=== PATIENT | male | born 1965 | race American Indian/Alaskan Native ===

== ENCOUNTER 2017-01-17 15:21 | Inpatient (IN) | payer OTHER ==
--- NOTE | 2017-01-17 15:50 | Emergency Department Report ---
Chief Complaint: Dizziness Stated Complaint: HIGH BLOOD SUGAR Time Seen by Provider: 01/17/17 15:46 - HPI History of Present Illness: PT c/o dizziness x 1 hr. PT states he was at work when his symptoms occurred. - ROS Review of Systems: + increase thirst - dysuria + left sided abd discomfort - Exam Physical Exam: obese male no acute distress no focal weakness gcs 15 MSE screening note: Focused history and physical exam performed. Due to findings the following was ordered: ekg, labs, ct ED Disposition for MSE Condition: Stable
[2017-01-17] MEDS ORDERED: NACL 0.9% 1000 ML 1,000 ML ONE (16:10)
[2017-01-17] MEDS ORDERED: HEPARIN 10,000 UNITS/10 ML ONE (16:11)
[2017-01-17] MEDS ORDERED: BABY ASPIRIN ONE (16:11)
[2017-01-17 16:24] LABS: Basophils % (Auto) 0.5 % (0.0-1.8); Eosinophils % (Auto) 1.3 % (0.0-4.3); Hematocrit 42.8 % (35.5-45.6); Mean Corpuscular HGB Conc 33 % (32-34); Mean Corpuscular Volume 79 fl (84-94); Platelet Count 252 K/mm3 (140-440); Red Blood Count 5.43 M/mm3 (3.65-5.03); Red Cell Distribution Width 15.4 % (13.2-15.2); White Blood Count 8.1 K/mm3 (4.5-11.0)
[2017-01-17] MEDS ORDERED: TRIDIL DRIP 50MG/250ML 50 MG/250 ML BOTTLE IV ONE (16:26)
[2017-01-17] MEDS ORDERED: ASPIRIN PO ONE (16:26)
[2017-01-17] MEDS ORDERED: TRIDIL DRIP 50MG/250ML 50 MG/250 ML BOTTLE ONE (16:26)
[2017-01-17 16:33] LABS: Mean Corpuscular Hemoglobin 26 pg (28-32)
[2017-01-17 16:35] LABS: INR 0.99 (0.87-1.13); Partial Thromboplastin Time 22.5 Sec. (24.2-36.6)
--- NOTE | 2017-01-17 16:46 | XRay Report ---
AP PORTABLE CHEST : 01/17/17 15:45:00 CLINICAL: Hypertension. COMPARISON:None FINDINGS: Normal heart and pulmonary vessels. The lungs are normally expanded and clear. The bones and soft tissues are unremarkable. IMPRESSION: Normal chest.
[2017-01-17 16:49] LABS: Alanine Aminotransferase 9 units/L (7-56); Albumin 4.2 g/dL (3.9-5); Alkaline Phosphatase 83 units/L (35-129); Anion Gap 17 mmol/L; Blood Urea Nitrogen 16 mg/dL (9-20); Calcium 9.6 mg/dL (8.4-10.2); Carbon Dioxide 29 mmol/L (22-30); Chloride 99.1 mmol/L (98-107); Glucose 258 mg/dL (75-100); Lipase 132 units/L (13-60); Potassium 4.4 mmol/L (3.6-5.0); Sodium 141 mmol/L (137-145); Total Protein 8.4 g/dL (6.3-8.2)
--- NOTE | 2017-01-17 17:08 | Emergency Department Report ---
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 He stated that he felt dizzy and very sweaty. He spoke to someone there who advised him that he should have his blood sugar checked which was found to be elevated. Patient began to experience tingling in his left side from his head to his foot. He also had some sort of discomfort in the left upper quadrant of his abdomen and the pericostal area anteriorly. This discomfort did not radiate. He states he did experience some tightness there. He did not refer to it as pain. The patient has a history of diabetes and hypertension. He denies smoking. He denies a family history of significant coronary artery disease to his knowledge. He states he has never had any workup for cardiac problems. When the patient arrived in the emergency department his blood pressure was about 150/100. -: Sudden Location: abdomen, left Quality: other ("tingling") Consistency: constant Improves with: none Worsens with: none Associated Symptoms: diaphoresis Treatments Prior to Arrival: none - Related Data Home Medications Medication Instructions Recorded Confirmed Last Taken metFORMIN [Glucophage] 500 mg PO BID 11/22/14 11/22/14 Unknown Previous Rx's Medication Instructions Recorded Last Taken Type Lisinopril/Hydrochlorothiazide 1 tab PO QDAY #30 tablet 11/22/14 Unknown Rx [Zestoretic 10-12.5 mg] traMADol [Ultram 50 MG tab] 50 mg PO Q6H PRN #10 tablet 11/22/14 Unknown Rx Allergies Allergy/AdvReac Type Severity Reaction Status Date / Time No Known Allergies Allergy Unverified 11/21/14 22:57 ED Review of Systems ROS: Stated complaint: HIGH BLOOD SUGAR Other details as noted in HPI Constitutional: denies: chills, fever Eyes: denies: eye pain, eye discharge, vision change ENT: denies: ear pain, throat pain Respiratory: denies: cough, shortness of breath, wheezing Cardiovascular: chest pain. denies: palpitations Endocrine: no symptoms reported Gastrointestinal: abdominal pain. denies: nausea, diarrhea Genitourinary: denies: urgency, dysuria Musculoskeletal: denies: back pain, joint swelling, arthralgia Skin: denies: rash, lesions Neurological: paresthesias. denies: headache, weakness Psychiatric: denies: anxiety, depression Hematological/Lymphatic: denies: easy bleeding, easy bruising ED Past Medical Hx - Past Medical History Hx Hypertension: Yes Hx Diabetes: Yes - Surgical History Additional Surgical History: testicular surg when teenager - Social History Smoking Status: Never Smoker Substance Use Type: None - Medications Home Medications: Home Medications Medication Instructions Recorded Confirmed Last Taken Type Lisinopril/Hydrochlorothiazide 1 tab PO QDAY #30 tablet 11/22/14 Unknown Rx [Zestoretic 10-12.5 mg] metFORMIN [Glucophage] 500 mg PO BID 11/22/14 11/22/14 Unknown History traMADol [Ultram 50 MG tab] 50 mg PO Q6H PRN #10 tablet 11/22/14 Unknown Rx ED Physical Exam - General Limitations: No Limitations General appearance: alert, in no apparent distress, other (cool and clammy) - Head Head exam: Present: atraumatic, normocephalic - Eye Eye exam: Present: normal appearance - ENT ENT exam: Present: mucous membranes moist - Neck Neck exam: Present: normal inspection. Absent: tenderness, meningismus - Respiratory Respiratory exam: Present: normal lung sounds bilaterally. Absent: respiratory distress - Cardiovascular Cardiovascular Exam: Present: regular rate, normal rhythm. Absent: systolic murmur, diastolic murmur, rubs, gallop - GI/Abdominal GI/Abdominal exam: Present: soft, normal bowel sounds. Absent: distended, tenderness, guarding, rebound, rigid - Rectal Rectal exam: Present: deferred - Extremities Exam Extremities exam: Present: normal inspection - Back Exam Back exam: Present: normal inspection - Neurological Exam Neurological exam: Present: alert, oriented X3, CN II-XII intact. Absent: motor sensory deficit - Psychiatric Psychiatric exam: Present: normal affect, normal mood - Skin Skin exam: Present: warm, dry, intact, normal color. Absent: rash ED Course Vital Signs 01/17/17 15:44 Temperature 98.2 F Pulse Rate 92 H Respiratory 20 Rate Blood Pressure 160/110 O2 Sat by Pulse 98 Oximetry - Reevaluation(s) Reevaluation #1: The initial EKG showed slight ST elevation in the inferior leads. This was of concern is patient was diaphoretic. The EKGs were tech stated to Dr. Lake. He stated that the EKGs were not consistent with STEMI. I as well do not think they meet STEMI criteria. However the finding of slight ST elevation in the inferior leads was certainly of concern. Serial EKGs were obtained and they showed no progression. Right-sided EKG was not diagnostic for right ventricular infarct although there is some slight anterior ST elevation. 01/17/17 17:10 Reevaluation #2: The patient had some higher readings which were not well replicated. He had one reading with a blood pressure of some 210/133 on the left but when that was repeated on the right side he was 170/100. It was then directly repeated on the left side and it was 170/100 as well. This was on a nitroglycerin drip of 15 mics. The patient did not require any additional medications for management of his hypertension. His nitroglycerin drip was continued. Ultimately the patient was seen by Dr. Lake. He stated that he thought the patient's noncompliance with medication and elevated blood pressure may contributed to his presentation. Patient remains on a nitroglycerin drip. Being that his CT of the head is clear I'm going to order heparin. 01/17/17 18:18 ED Medical Decision Making - Lab Data Result diagrams: 01/17/17 16:15 01/17/17 16:15 Laboratory Results - last 24 hr 01/17/17 01/17/17 01/17/17 15:39 16:15 16:15 WBC 8.1 RBC 5.43 H Hgb 14.0 Hct 42.8 MCV 79 L MCH 26 L MCHC 33 RDW 15.4 H Plt Count 252 Lymph % (Auto) 19.8 [place] % (Auto) 8.1 H Eos % (Auto) 1.3 Baso % (Auto) 0.5 Lymph # 1.6 [place] # 0.7 Eos # 0.1 Baso # 0.0 Seg Neutrophils % 70.3 H Seg Neutrophils # 5.7 PT 13.0 INR 0.99 APTT 22.5 L VBG pH Sodium Potassium Chloride Carbon Dioxide Anion Gap BUN Creatinine Estimated GFR BUN/Creatinine Ratio Glucose POC Glucose 257 H Calcium Total Bilirubin AST ALT Alkaline Phosphatase Troponin T Total Protein Albumin Albumin/Globulin Ratio Lipase 01/17/17 01/17/17 16:15 16:15 WBC RBC Hgb Hct MCV MCH MCHC RDW Plt Count Lymph % (Auto) [place] % (Auto) Eos % (Auto) Baso % (Auto) Lymph # [place] # Eos # Baso # Seg Neutrophils % Seg Neutrophils # PT INR APTT VBG pH 7.330 Sodium 141 Potassium 4.4 Chloride 99.1 Carbon Dioxide 29 Anion Gap 17 BUN 16 Creatinine 1.3 Estimated GFR > 60 BUN/Creatinine Ratio 12.30 Glucose 258 H POC Glucose Calcium 9.6 Total Bilirubin 0.60 AST 12 ALT 9 Alkaline Phosphatase 83 Troponin T < 0.010 Total Protein 8.4 H Albumin 4.2 Albumin/Globulin Ratio 1.0 Lipase 132 H Laboratory Results - last 24 hr 01/17/17 01/17/17 01/17/17 15:39 16:15 16:15 WBC 8.1 RBC 5.43 H Hgb 14.0 Hct 42.8 MCV 79 L MCH 26 L MCHC 33 RDW 15.4 H Plt Count 252 Lymph % (Auto) 19.8 [place] % (Auto) 8.1 H Eos % (Auto) 1.3 Baso % (Auto) 0.5 Lymph # 1.6 [place] # 0.7 Eos # 0.1 Baso # 0.0 Seg Neutrophils % 70.3 H Seg Neutrophils # 5.7 PT 13.0 INR 0.99 APTT 22.5 L VBG pH Sodium Potassium Chloride Carbon Dioxide Anion Gap BUN Creatinine Estimated GFR BUN/Creatinine Ratio Glucose POC Glucose 257 H Calcium Total Bilirubin AST ALT Alkaline Phosphatase Troponin T Total Protein Albumin Albumin/Globulin Ratio Lipase 01/17/17 01/17/17 16:15 16:15 WBC RBC Hgb Hct MCV MCH MCHC RDW Plt Count Lymph % (Auto) [place] % (Auto) Eos % (Auto) Baso % (Auto) Lymph # [place] # Eos # Baso # Seg Neutrophils % Seg Neutrophils # PT INR APTT VBG pH 7.330 Sodium 141 Potassium 4.4 Chloride 99.1 Carbon Dioxide 29 Anion Gap 17 BUN 16 Creatinine 1.3 Estimated GFR > 60 BUN/Creatinine Ratio 12.30 Glucose 258 H POC Glucose Calcium 9.6 Total Bilirubin 0.60 AST 12 ALT 9 Alkaline Phosphatase 83 Troponin T < 0.010 Total Protein 8.4 H Albumin 4.2 Albumin/Globulin Ratio 1.0 Lipase 132 H - EKG Data EKG shows normal: sinus rhythm Rate: normal - EKG Data Interpretation: other (there is very slight ST elevation in lead 3 and aVF. Otherwise the EKG is consistent with LVH and associated repolarization abnormality which is somewhat diffuse.) - Radiology Data Radiology results: report reviewed interpreted by me: Chest x-ray showed a normal mediastinum and cardiac silhouette. No infiltrate. Critical Care Time: Yes Critical care time in (mins) excluding proc time.: 60 Critical care attestation.: If time is entered above; I have spent that time in minutes in the direct care of this critically ill patient, excluding procedure time. ED Disposition Clinical Impression: Acute coronary syndrome, Uncontrolled hypertension, Paresthesias Hyperglycemia due to type 2 diabetes mellitus Qualifiers: Diabetes mellitus penitentiary insulin use: without penitentiary use Qualified Code(s ): E11.65 - Type 2 diabetes mellitus with hyperglycemia Disposition: OP ADMIT IP TO THIS HOSP Is pt being admited?: Yes Does the pt Need Aspirin: Yes Condition: Stable Instructions: Hypertension (ED), Diabetes Mellitus Type 2 in Adults (ED) Referrals: PRIMARY CARE, [Primary Care Provider] - 3-5 Days Time of Disposition: 18:25
--- NOTE | 2017-01-17 17:58 | Cat Scan Report ---
FINAL REPORT EXAM: CT HEAD/BRAIN WO CON HISTORY: L sided tingling TECHNIQUE: Standard unenhanced CT of the head at 5.0 millimeter axial increments. PRIORS: None. FINDINGS: The ventricular system is normal in size and configuration. There is no evidence for parenchymal volume loss. There is no evidence for mass lesion, mass effect, midline shift, acute intracranial hemorrhage, or acute ischemia/ infarction. No evidence for acute skull fracture is seen. No abnormality in the overlying scalp soft tissues is seen. Visualized paranasal sinuses demonstrates an air-fluid level in the left sphenoid sinus with minimal mucosal thickening. IMPRESSION: Negative CT of the head. No acute intracranial process noted. Mild acute on chronic left sphenoid sinusitis
[2017-01-17] MEDS ORDERED: HEPARIN 10,000 UNITS/10 ML IV ONE (18:20)
[2017-01-17] MEDS: HEPARIN/ 0.45% NACL-25,000 UNIT/500 ML 25,000 UNIT/500 ML BAG IV SCH (19:04)
[2017-01-17 19:36] LABS: Bilirubin,Urine NEG (Negative); Blood,Urine NEG (Negative); Ketones,Urine NEG (Negative); Leukocyte Esterase,Urine NEG (Negative); Mucus,Urine 2+ /HPF; Nitrite,Urine NEG (Negative)
--- NOTE | 2017-01-17 20:41 | Consultation ---
History of Present Illness Consult date: 01/17/17 Consult reason: hypertension, other (abnormal ECG) History of present illness: The patient's a 51-year-old man with a history of chronic hypertension and diabetes. He is noncompliant with his medications, and has not taken his lisinopril in over a year. He also admits to not having seen his doctor's in over a year. He presents to the hospital with a near syncopal episode, associated with severe hypertension. 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 In the emergency room, systolic blood pressure was 217 and diastolic 133. There was no palpitations, no chest pain and no unusual shortness of breath. There is no lower extremity edema. ECG in the emergency room was sinus rhythm with left ventricular hypertrophy and ST and T-wave abnormalities which represent repolarization abnormalities of LVH. No acute ischemia or infarction on the EKG. Cardiac consultation was requested. Past History Past Medical History: diabetes, hypertension Medications and Allergies Allergies Allergy/AdvReac Type Severity Reaction Status Date / Time No Known Allergies Allergy Unverified 11/21/14 22:57 Home Medications Medication Instructions Recorded Confirmed Last Taken Type Lisinopril/Hydrochlorothiazide 1 tab PO QDAY #30 tablet 11/22/14 Unknown Rx [Zestoretic 10-12.5 mg] metFORMIN [Glucophage] 500 mg PO BID 11/22/14 11/22/14 Unknown History traMADol [Ultram 50 MG tab] 50 mg PO Q6H PRN #10 tablet 11/22/14 Unknown Rx Active Meds: Active Medications Nitroglycerin/Dextrose (Tridil Drip 50mg/250ml) 50 mg in 250 mls @ 3 mls/hr IV TITR ONE; 10 MCG/MIN PRN Reason: Protocol Stop: 01/21/17 03:45 Last Titration: 01/17/17 19:30 Dose: 30 mcg/min, 9 mls/hr Heparin Sodium/Sodium Chloride (Heparin/ 0.45% Nacl-25,000 Unit/500 Ml) 25,000 unit in 500 mls @ 20 mls/hr IV TITRATE SAW; 1,000 UNITS/HR PRN Reason: Protocol Last Admin: 01/17/17 19:04 Dose: 1,000 units/hr, 20 mls/hr Review of Systems Cardiovascular: syncope, lightheadedness, no chest pain, no orthopnea, no palpitations, no rapid/irregular heart beat, no edema, no shortness of breath Physical Examination Vital Signs Temp Pulse Resp BP Pulse Ox 98.2 F 92 H 20 160/110 98 01/17/17 15:44 01/17/17 15:44 01/17/17 15:44 01/17/17 15:44 01/17/17 15:44 General appearance: no acute distress HEENT: Positive: PERRL Neck: Positive: neck supple Cardiac: Positive: Reg Rate and Rhythm Lungs: Positive: Decreased Breath Sounds Neuro: Positive: Grossly Intact Abdomen: Positive: Soft Male genitourinary: Positive: deferred Skin: Positive: Clear Extremities: Absent: edema Results 01/17/17 16:15 01/17/17 16:15 Cardiac Enzymes 01/17/17 Range/Units 16:15 AST 12 (5-40) units/L Coagulation 01/17/17 Range/Units 16:15 PT 13.0 (12.2-14.9) Sec. INR 0.99 (0.87-1.13) APTT 22.5 L (24.2-36.6) Sec. CBC 01/17/17 Range/Units 16:15 WBC 8.1 (4.5-11.0) K/mm3 RBC 5.43 H (3.65-5.03) M/mm3 Hgb 14.0 (11.8-15.2) gm/dl Hct 42.8 (35.5-45.6) % Plt Count 252 (140-440) K/mm3 Lymph # 1.6 (1.2-5.4) K/mm3 [place] # 0.7 (0.0-0.8) K/mm3 Eos # 0.1 (0.0-0.4) K/mm3 Baso # 0.0 (0.0-0.1) K/mm3 Comprehensive Metabolic Panel 01/17/17 Range/Units 16:15 Sodium 141 (137-145) mmol/L Potassium 4.4 (3.6-5.0) mmol/L Chloride 99.1 (98-107) mmol/L Carbon Dioxide 29 (22-30) mmol/L BUN 16 (9-20) mg/dL Creatinine 1.3 (0.8-1.5) mg/dL Glucose 258 H (75-100) mg/dL Calcium 9.6 (8.4-10.2) mg/dL AST 12 (5-40) units/L ALT 9 (7-56) units/L Alkaline Phosphatase 83 (35-129) units/L Total Protein 8.4 H (6.3-8.2) g/dL Albumin 4.2 (3.9-5) g/dL EKG interpretations - Telemetry EKG Rhythm: Sinus Rhythm Assessment and Plan - Patient Problems (1) Uncontrolled hypertension Current Visit: Yes Status: Acute Plan to address problem: The patient's primary symptoms of dizziness and headache, associated with uncontrolled hypertension from being noncompliant with his antihypertensives for over a year. Recommend aggressive control and management of blood pressure, salt restricted diet, and patient counseling. (2) Abnormal ECG Current Visit: Yes Status: Acute Plan to address problem: ECG abnormalities are consistent with left ventricle hypertrophy associated with his chronic hypertension. We will recommend further evaluation with an echocardiogram, and predischarge Persantine thallium stress test.
[2017-01-17] MEDS ORDERED: ZOFRAN IV PRN (20:43)
[2017-01-17] MEDS ORDERED: MILK OF MAGNESIA PO PRN (20:43)
[2017-01-17] MEDS ORDERED: TYLENOL PO PRN (20:43)
[2017-01-17] MEDS ORDERED: ULTRAM PO PRN (20:43)
[2017-01-17] MEDS ORDERED: DULCOLAX PR PRN (20:43)
[2017-01-17] MEDS ORDERED: PERCOCET 5/325 PO PRN (20:43)
--- NOTE | 2017-01-17 20:43 | History and Physical Report ---
History of Present Illness Date of examination: 01/17/17 Date of admission: 01/17/17 Chief complaint: L side Numbness sudden onset. History of present illness: - History of Present Illness Initial comments: Patient states that he was working on the [employer] machine in the [facility] [employer] area when he began to experience dizzinrss and severe diaphoresis. He spoke to someone there who advised him that he should have his blood sugar checked which was found to be elevated. Patient began to experience tingling in his left side from his head to his foot. He also had some sort of discomfort in the left upper quadrant of his abdomen and the pericostal area anteriorly. This discomfort did not radiate. He states he did experience some tightness there. He did not refer to it as pain. The patient has a history of diabetes and hypertension.Not taking his meds for few months.BP was very high subsequently in the ER. He denies smoking. He denies a family history of significant coronary artery disease to his knowledge. He states he has never had any workup for cardiac problems. When the patient arrived in the emergency department his blood pressure was about 150/100. -: Sudden Location: abdomen, left Quality: other ("tingling") Consistency: constant Improves with: none Worsens with: none Associated Symptoms: diaphoresis Treatments Prior to Arrival: none - Related Data Home Medications Medication Instructions Recorded Confirmed Last Taken metFORMIN [Glucophage] 500 mg PO BID 11/22/14 11/22/14 Unknown Previous Rx's Medication Instructions Recorded Last Taken Type Lisinopril/Hydrochlorothiazide 1 tab PO QDAY #30 tablet 11/22/14 Unknown Rx [Zestoretic 10-12.5 mg] traMADol [Ultram 50 MG tab] 50 mg PO Q6H PRN #10 tablet 11/22/14 Unknown Rx Allergies Allergy/AdvReac Type Severity Reaction Status Date / Time No Known Allergies Allergy Unverified 11/21/14 22:57 ED Review of Systems ROS: Stated complaint: HIGH BLOOD SUGAR Other details as noted in HPI Constitutional: denies: chills, fever Eyes: denies: eye pain, eye discharge, vision change ENT: denies: ear pain, throat pain Respiratory: denies: cough, shortness of breath, wheezing Cardiovascular: chest pain. denies: palpitations Endocrine: no symptoms reported Gastrointestinal: abdominal pain. denies: nausea, diarrhea Genitourinary: denies: urgency, dysuria Musculoskeletal: denies: back pain, joint swelling, arthralgia Skin: denies: rash, lesions Neurological: paresthesias. denies: headache, weakness Psychiatric: denies: anxiety, depression Hematological/Lymphatic: denies: easy bleeding, easy bruising ED Past Medical Hx - Past Medical History Hx Hypertension: Yes Hx Diabetes: Yes - Surgical History Additional Surgical History: testicular surg when teenager - Social History Smoking Status: Never Smoker Substance Use Type: None - Medications Home Medications: Home Medications Medication Instructions Recorded Confirmed Last Taken Type Lisinopril/Hydrochlorothiazide 1 tab PO QDAY #30 tablet 11/22/14 Unknown Rx [Zestoretic 10-12.5 mg] metFORMIN [Glucophage] 500 mg PO BID 11/22/14 11/22/14 Unknown History traMADol [Ultram 50 MG tab] 50 mg PO Q6H PRN #10 tablet 11/22/14 Unknown Rx Medications and Allergies Allergies Allergy/AdvReac Type Severity Reaction Status Date / Time No Known Allergies Allergy Unverified 11/21/14 22:57 Home Medications Medication Instructions Recorded Confirmed Last Taken Type No Known Home Medications [No 01/17/17 01/17/17 Unknown History Reported Home Medications] Active Meds: Active Medications Nitroglycerin/Dextrose (Tridil Drip 50mg/250ml) 50 mg in 250 mls @ 3 mls/hr IV TITR ONE; 10 MCG/MIN PRN Reason: Protocol Stop: 01/21/17 03:45 Last Titration: 01/17/17 19:30 Dose: 30 mcg/min, 9 mls/hr Heparin Sodium/Sodium Chloride (Heparin/ 0.45% Nacl-25,000 Unit/500 Ml) 25,000 unit in 500 mls @ 20 mls/hr IV TITRATE SAW; 1,000 UNITS/HR PRN Reason: Protocol Last Admin: 01/17/17 19:04 Dose: 1,000 units/hr, 20 mls/hr Exam - Physical Exam Narrative exam: Lying comfortably - Constitutional Vitals: Temp Pulse Resp BP Pulse Ox 98.2 F 87 14 170/119 98 01/17/17 15:44 01/17/17 19:45 01/17/17 19:45 01/17/17 19:45 01/17/17 19:45 General appearance: Present: no acute distress, well-nourished - EENT Eyes: Present: PERRL ENT: hearing intact, clear oral mucosa - Neck Neck: Present: supple, normal ROM - Respiratory Respiratory effort: normal Respiratory: bilateral: CTA - Cardiovascular Heart rate: 80 Heart Sounds: Present: S1 & S2. Absent: rub, click - Extremities Extremities: no ischemia, pulses intact, pulses symmetrical, No edema Peripheral Pulses: within normal limits - Abdominal General gastrointestinal: Present: soft, non-tender, non-distended, normal bowel sounds Male genitourinary: Present: normal - Rectal Rectal Exam: deferred - Integumentary Integumentary: Present: clear, warm, dry - Musculoskeletal Musculoskeletal: gait normal, strength equal bilaterally - Psychiatric Psychiatric: appropriate mood/affect, intact judgment & insight, memory intact, cooperative - Neurologic Neurologic: CNII-XII intact, moves all extremities, gait normal, other (No sensory loss) - Allied Health Allied health notes reviewed: nursing, case management Results - Labs CBC & Chem 7: 01/18/17 05:29 01/18/17 05:29 Labs: Laboratory Last Values WBC 8.1 K/mm3 (4.5-11.0) 01/17/17 16:15 RBC 5.43 M/mm3 (3.65-5.03) H 01/17/17 16:15 Hgb 14.0 gm/dl (11.8-15.2) 01/17/17 16:15 Hct 42.8 % (35.5-45.6) 01/17/17 16:15 MCV 79 fl (84-94) L 01/17/17 16:15 MCH 26 pg (28-32) L 01/17/17 16:15 MCHC 33 % (32-34) 01/17/17 16:15 RDW 15.4 % (13.2-15.2) H 01/17/17 16:15 Plt Count 252 K/mm3 (140-440) 01/17/17 16:15 Lymph % (Auto) 19.8 % (13.4-35.0) 01/17/17 16:15 [place] % (Auto) 8.1 % (0.0-7.3) H 01/17/17 16:15 Eos % (Auto) 1.3 % (0.0-4.3) 01/17/17 16:15 Baso % (Auto) 0.5 % (0.0-1.8) 01/17/17 16:15 Lymph # 1.6 K/mm3 (1.2-5.4) 01/17/17 16:15 [place] # 0.7 K/mm3 (0.0-0.8) 01/17/17 16:15 Eos # 0.1 K/mm3 (0.0-0.4) 01/17/17 16:15 Baso # 0.0 K/mm3 (0.0-0.1) 01/17/17 16:15 Seg Neutrophils % 70.3 % (40.0-70.0) H 01/17/17 16:15 Seg Neutrophils # 5.7 K/mm3 (1.8-7.7) 01/17/17 16:15 PT 13.0 Sec. (12.2-14.9) 01/17/17 16:15 INR 0.99 (0.87-1.13) 01/17/17 16:15 APTT 22.5 Sec. (24.2-36.6) L 01/17/17 16:15 VBG pH 7.330 (7.320-7.420) 01/17/17 16:15 Sodium 141 mmol/L (137-145) 01/17/17 16:15 Potassium 4.4 mmol/L (3.6-5.0) 01/17/17 16:15 Chloride 99.1 mmol/L (98-107) 01/17/17 16:15 Carbon Dioxide 29 mmol/L (22-30) 01/17/17 16:15 Anion Gap 17 mmol/L 01/17/17 16:15 BUN 16 mg/dL (9-20) 01/17/17 16:15 Creatinine 1.3 mg/dL (0.8-1.5) 01/17/17 16:15 Estimated GFR > 60 ml/min 01/17/17 16:15 BUN/Creatinine Ratio 12.30 % 01/17/17 16:15 Glucose 258 mg/dL (75-100) H 01/17/17 16:15 POC Glucose 257 (70-105) H 01/17/17 15:39 Calcium 9.6 mg/dL (8.4-10.2) 01/17/17 16:15 Total Bilirubin 0.60 mg/dL (0.1-1.2) 01/17/17 16:15 AST 12 units/L (5-40) 01/17/17 16:15 ALT 9 units/L (7-56) 01/17/17 16:15 Alkaline Phosphatase 83 units/L (35-129) 01/17/17 16:15 Troponin T < 0.010 ng/mL (0.00-0.029) 01/17/17 16:15 Total Protein 8.4 g/dL (6.3-8.2) H 01/17/17 16:15 Albumin 4.2 g/dL (3.9-5) 01/17/17 16:15 Albumin/Globulin Ratio 1.0 % 01/17/17 16:15 Lipase 132 units/L (13-60) H 01/17/17 16:15 Urine Color Yellow (Yellow) 01/17/17 18:50 Urine Turbidity Clear (Clear) 01/17/17 18:50 Urine pH 5.0 (5.0-7.0) 01/17/17 18:50 Ur Specific [place] 1.021 (1.003-1.030) 01/17/17 18:50 Urine Protein 100 mg/dl mg/dL (Negative) 01/17/17 18:50 Urine Glucose (UA) 150 mg/dL (Negative) 01/17/17 18:50 Urine Ketones Neg mg/dL (Negative) 01/17/17 18:50 Urine Blood Neg (Negative) 01/17/17 18:50 Urine Nitrite Neg (Negative) 01/17/17 18:50 Urine Bilirubin Neg (Negative) 01/17/17 18:50 Urine Urobilinogen 2.0 mg/dL (<2.0) 01/17/17 18:50 Ur Leukocyte Esterase Neg (Negative) 01/17/17 18:50 Urine WBC (Auto) 6.0 /HPF (0.0-6.0) 01/17/17 18:50 Urine RBC (Auto) 4.0 /HPF (0.0-6.0) 01/17/17 18:50 U Epithel Cells (Auto) < 1.0 /HPF (0-13.0) 01/17/17 18:50 Urine Mucus 2+ /HPF 01/17/17 18:50 Short CBC 01/17/17 01/18/17 Range/Units 16:15 05:29 WBC 8.1 7.8 (4.5-11.0) K/mm3 Hgb 14.0 12.0 (11.8-15.2) gm/dl Hct 42.8 36.5 D (35.5-45.6) % Plt Count 252 230 (140-440) K/mm3 BMP 01/17/17 01/18/17 16:15 05:29 Sodium 141 138 Potassium 4.4 4.0 Chloride 99.1 100.8 Carbon Dioxide 29 24 BUN 16 15 Creatinine 1.3 0.8 Glucose 258 H 300 H Calcium 9.6 8.6 Cardiac Enzymes 01/17/17 01/17/17 01/17/17 Range/Units 16:15 20:52 23:40 Total Creatine Kinase 73 72 (55-170) units/L CK-MB (CK-2) 1.1 1.1 (0.0-4.0) ng/mL Troponin T < 0.010 < 0.010 < 0.010 (0.00-0.029) ng/mL 01/18/17 Range/Units 05:29 Total Creatine Kinase 65 (55-170) units/L CK-MB (CK-2) < 1.0 (0.0-4.0) ng/mL Troponin T < 0.010 (0.00-0.029) ng/mL Liver Function 01/17/17 01/18/17 Range/Units 16:15 05:29 Total Bilirubin 0.60 0.30 (0.1-1.2) mg/dL AST 12 9 (5-40) units/L ALT 9 8 (7-56) units/L Alkaline Phosphatase 83 70 (35-129) units/L Albumin 4.2 3.3 L (3.9-5) g/dL Urine 01/17/17 Range/Units 18:50 Urine Color Yellow (Yellow) Urine pH 5.0 (5.0-7.0) Ur Specific [place] 1.021 (1.003-1.030) Urine Protein 100 mg/dl (Negative) mg/dL Urine Glucose (UA) 150 (Negative) mg/dL - Imaging and Cardiology EKG: report reviewed (LVH with repolarization abnormalities ) Chest x-ray: report reviewed (NAF) Assessment and Plan Advance Directives: Yes (Full code) VTE prophylaxis?: Chemical Plan of care discussed with patient/family: Yes - Patient Problems (1) Hypertensive emergency without congestive heart failure Current Visit: Yes Status: Acute Plan to address problem: Initiated Lisinopril /Hctz -his home medication and added Valsartan 169 mg po q12h and coreg 12.5 q12h.Hydralazine 10mg iv PRN. Patient to be counselled about compliance. (2) Acute coronary syndrome Current Visit: Yes Status: Acute Plan to address problem: Patient staated on IV Heparin.Lexiscan and serial cardiac enzymes ordered (3) Uncontrolled diabetes mellitus Current Visit: Yes Status: Chronic Qualifiers: Diabetes mellitus type: type 2 Diabetes mellitus complication status: without complication Diabetes mellitus complication detail: D Diabetic retinopathy severity: D Proliferative retinopathy type: P Diabetes mellitus macular edema: D Diabetes mellitus assisted insulin use: without long term care pharmacist use Laterality: L Chronic kidney disease stage: C Qualified Code(s): E11.65 - Type 2 diabetes mellitus with hyperglycemia Plan to address problem: Patient in denial and not taking his Metformin which is not enough to treat his T2DM.He needs to be on Basal bolus regimen .His A1c is around 12. (4) TIA (transient ischemic attack) Current Visit: Yes Status: Acute Qualifiers: Transient cerebral ischemia type: unspecified Qualified Code(s): G45.9 - Transient cerebral ischemic attack, unspecified Plan to address problem: Patient has L sided Numbness.And persistent.Will treat it as TIA.Get MRI MRA CDS and Echo.Neuro consult requested. (5) DVT prophylaxis Current Visit: Yes Status: Acute (6) DVT prophylaxis Current Visit: Yes Status: Acute Plan to address problem: On Heparin drip
[2017-01-17] MEDS ORDERED: SODIUM CHLORIDE FLUSH SYRINGE 10 ML IV PRN (20:45)
[2017-01-17] MEDS ORDERED: NON-FORMULARY (Lisinopril/Hydrochlorothiazide [Zestoretic 10-12.5 Mg] 1 TAB) PO SCH (20:45)
[2017-01-17 21:28] LABS: Creatine Kinase MB 1.1 ng/mL (0.0-4.0)
[2017-01-17 21:29] LABS: Creatine Kinase 73 units/L (55-170)
[2017-01-17] MEDS ORDERED: HCTZ PO SCH (22:00)
[2017-01-17] MEDS: GLUCOPHAGE PO SCH ×2 (22:12→22:31)
[2017-01-17] MEDS: ZESTRIL PO SCH (22:30)
[2017-01-17] MEDS: DIOVAN PO SCH (22:30)
[2017-01-18 00:11] LABS: Creatine Kinase MB 1.1 ng/mL (0.0-4.0)
[2017-01-18 00:12] LABS: Creatine Kinase 72 units/L (55-170)
[2017-01-18] MEDS ORDERED: ZESTRIL ONE (00:42)
[2017-01-18] MEDS: ZESTRIL PO SCH (01:05)
[2017-01-18] MEDS: HEPARIN/ 0.45% NACL-25,000 UNIT/500 ML 25,000 UNIT/500 ML BAG IV SCH (03:41)
[2017-01-18] MEDS: CATAPRES PO SCH ×3 (03:48→22:27)
[2017-01-18] MEDS ORDERED: TRIDIL DRIP 50MG/250ML 50 MG/250 ML BOTTLE IV SCH (04:00)
[2017-01-18 05:54] LABS: Basophils % (Auto) 0.6 % (0.0-1.8); Eosinophils % (Auto) 1.6 % (0.0-4.3); Hematocrit 36.5 % (35.5-45.6); Mean Corpuscular HGB Conc 33 % (32-34); Mean Corpuscular Volume 79 fl (84-94); Platelet Count 230 K/mm3 (140-440); Red Blood Count 4.66 M/mm3 (3.65-5.03); Red Cell Distribution Width 15.3 % (13.2-15.2); White Blood Count 7.8 K/mm3 (4.5-11.0)
[2017-01-18 06:04] LABS: Mean Corpuscular Hemoglobin 26 pg (28-32)
[2017-01-18 06:19] LABS: Creatine Kinase MB < 1.0 ng/mL (0.0-4.0)
[2017-01-18 06:20] LABS: Alanine Aminotransferase 8 units/L (7-56); Albumin 3.3 g/dL (3.9-5); Albumin/Globulin Ratio 0.9 %; Alkaline Phosphatase 70 units/L (35-129); Anion Gap 17 mmol/L; BUN/Creatinine Ratio 18.75; Blood Urea Nitrogen 15 mg/dL (9-20); Calcium 8.6 mg/dL (8.4-10.2); Carbon Dioxide 24 mmol/L (22-30); Chloride 100.8 mmol/L (98-107); Glucose 300 mg/dL (75-100); Sodium 138 mmol/L (137-145); Total Protein 6.8 g/dL (6.3-8.2)
[2017-01-18 06:23] LABS: Creatine Kinase 65 units/L (55-170)
[2017-01-18] MEDS ORDERED: SODIUM CHLORIDE FLUSH SYRINGE 10 ML IV PRN (06:48)
[2017-01-18] MEDS: NOVOLOG SUB-Q SCH ×8 (08:00→22:24)
[2017-01-18] MEDS: GLUCOPHAGE PO SCH ×2 (08:00→17:42)
--- NOTE | 2017-01-18 09:32 | Admit Criteria Form ---
Admission Criteria Documentation: CARDIOLOGY GRG Clinical Indications for Admission to Inpatient Care ( Place 'X' for any and all applicable criteria): Hospital admission is needed for appropriate care of the patient because of ANY ONE of the following (1): [ ] I. Hemodynamic instability as indicated by ALL of the following (1)(2)(3) (4)(5) [ ]a) Vital signs or other findings not as expected for chronic patient condition or baseline [ ]b) Instability indicated by ANY ONE of the following: [ ]i) Hypotension [ ]ii) Symptomatic Tachycardia unresponsive to treatment ( e.g., analgesia, fluids, sedation as indicated) [ ]iii) Inadequate perfusion indicated by ANY ONE of the following: [ ] 1) Lactic acidosis (> 2 mmol/L) [ ] 2) New abnormal capillary refill (> 3 seconds) [ ] 3) Reduced urine output [ ] 4) New altered mental status [ ]iv) Orthostatic vital sign changes unresponsive to treatment (e.g., fluids) [ ]v) IV inotropic or vasopressor medication required to maintain adequate blood pressure or perfusion [ ] II. Severe heart failure as indicated by ANY ONE of the following(17)(18) [ ]a) Respiratory distress [ ]b) Hypotension [ ]c) Anasarca (refractory to outpatient therapy) [ ]d) Cardiac arrhythmias of immediate concern [ ]e) Myocardial ischemia [ ] III. Cardiac arrhythmias or findings of immediate concern indicated by ANY ONE of the following (19)(20): [ ] a) Heart rhythms that are inherently dangerous or unstable indicated by ANY ONE of the following (21)(22)(23): [ ] i) Resuscitated ventricular fibrillation or cardiac arrest [ ] ii) Ventricular escape rhythm [ ] iii) Sustained ventricular tachycardia (30 seconds or more of ventricular rhythm at greater than 100 beats per minute) [ ] iv) Nonsustained ventricular tachycardia and ANY ONE of the following: [ ] 1) Suspected cardiac ischemia as cause or consequence of ventricular tachycardia [ ] 2) In setting of acute myocarditis [ ] b) Unstable cardiac conduction defects indicated by ANY ONE of the following(23)(24)(25) [ ] i) Type II second-degree atrioventricular block [ ]ii) Third-degree atrioventricular block [ ]iii) New-onset left bundle branch block with suspected myocardial ischemia [ ]c) Any heart rhythm and ANY ONE of the following (21)(22)(26)(27) (28) [ ] i) Continuous long-term ECG monitoring needed (e.g., initiation of drug requiring monitoring for more than 24 hours) [ ] ii) Patient has automatic implanted cardioverter defibrillator that is repeatedly firing, malfunctioning, or in need of immediate adjustment of settings beyond the scope of ambulatory or observation care [ ]d) Heart rhythms of concern due to ANY ONE of the following: [ ] i) Hypotension [ ] ii) Respiratory distress [ ] iii) Association with other significant symptoms (e.g., bradycardia with syncope or ongoing dizziness, supraventricular tachycardia with chest pain (14)(15)(17) [ ] IV. Monitoring for cardiac contusion beyond the scope of observation care needed [A](30)(31)(32) [ ] V. Surgical or device complication (e.g., valve replacement complication , pacemaker dysfunction) (35)(41)(44)(45)(46) [ ] . Inpatient palliative care needed. [B](49) Also use Inpatient Palliative Care Criteria [ ] VII. Nonbacterial thrombotic (marantic) endocarditis (36)(43)(47)(48) [ ] VIII. Cardiology condition, symptom, or finding for which emergency and observation care has failed or are not considered appropriate. [ ] IX. Acute valvular disease requiring inpatient as indicated by ANY ONE of the following (41) [ ]a) Acute valvular regurgitation (42) [ ]b) Noninfectious valvulitis (43) [ ]c) Obstructive valve thrombosis [ ]d) Paravalvular leak [ ]e) Other significant valvular disorder remaining after emergency or observation level of care (as appropriate) [ ]X. Pericardial disease requiring inpatient treatment as indicated by ANY ONE of the following (33)(34)(35)(36)(37) [ ]a) Suspected tamponade (38)(39)(40) [ ]b) Hemopericardium [ ]c) Other significant pericardial disorder remaining after emergency or observation level of care (as appropriate) [ ] XI. Cardiac ischemia beyond scope of emergency and observation care. [X] XII. Hypertension requiring inpatient treatment as indicated by ANY ONE of the following (6)(7)(8) [ ]a) SBP greater than 220 mm Hg or DBP greater than 120 mmHg despite treatment [X]b) SBP greater than 140 mm Hg or DBP greater than 100 mm Hg with evidence of acute end organ damage as indicated by ANY ONE of the following [ ] i) Altered mental status [ ] ii) Acute renal failure as indicated by new onset of ANY ONE of the following (9)(10)(11)(12)(13) [ ]1) 3-fold rise in serum creatinine from baseline [ ]2) Serum creatinine greater than 4 mg/dL ( 354 micromoles/L) with acute rise greater than 0.5 mg/dL (44.2 micromoles/L) [ ]3) Reduction of more than 75% in estimated glomerular filtration rate from baseline [ ]4) Estimated glomerular filtration rate less than 35 mL/min/1.73m2 (0.59 mL/sec/1.73m2) in child up to 18 years of age [ ]5) Cessation of urine output indicated by ALL of the following [ ]A. Adequate volume status [ ]B. Inadequate urine output as indicated by ANY ONE of the following [ ]a. Urine output less than 0.3 mL/kg/hr for 24 hours [ ]b. Anuria (urine output less than 0.1 mL/kg/hr) for 12 hours [ ] iii) Aortic dissection [X] iv) Myocardial Ischemia [ ] v) Left ventricular heart failure [ ]vi) Retinal Hemorrhage [ ]vii) Other significant finding [ ]c) Hypertension in child requiring inpatient treatment as indicated by ALL of the following(14)(15)(16) [ ] i) Outpatient treatment not effective, not available, or not appropriate [ ]ii) SBP or DBP greater than 95th percentile for age [ ]iii) Evidence of acute end organ damage as indicated by ANY ONE of the following [ ]1) Altered mental status [ ]2) Acute renal failure as indicated by new onset of ANY ONE of the following(9)(10)(11)(12)(13) [ ]A. 3-fold rise in serum creatinine from baseline [ ]B. Serum creatinine greater than 4 mg/dL (354 micromoles/L) with acute rise greater than 0.5 mg/dL (44.2 micromoles/L) [ ]C. Reduction of more than 75% in estimated glomerular filtration rate from baseline [ ]D. Estimated glomerular filtration rate less than 35 mL/min/1.73m2 (0.59 mL/sec/1.73m2) in child up to 18 years of age [ ]E. Cessation of urine output indicated by ALL of the following [ ]a. Adequate volume status [ ]b. Inadequate urine output as indicated by ANY ONE of the following [ ]i) Urine output less than 0.3 mL/kg/hr for 24 hours [ ]ii) Anuria ( urine output less than 0.1 mL/kg/hr) for 12 hours [ ]3) Severe headache [ ]4) Visual disturbance [ ]5) Retinal hemorrhage [ ]6) Other significant finding [ ]XIII. Complications of transplanted heart indicated by ANY ONE of the following(61): [ ]a) Acute graft rejection requiring inpatient management (eg, intravenous immunosuppression)(62)(63) [ ]b) Acute graft heart failure indicated by ANY ONE of the following(64): [ ]i) Hemodynamic instability [ ]ii) Cardiac arrhythmias of immediate concern [ ]iii) Pulmonary edema that is very severe (eg, mechanical ventilation needed, imminent or likely, need for 100% oxygen to keep oxygen saturation above 90%) [ ]iv) Pulmonary edema that is persistent as indicated by ALL of the following: [ ]1) New need for oxygen therapy to keep oxygen saturation above 90% (or increased FiO2 need from baseline) [ ]2) Has not improved sufficiently with emergency department or observation care IV diuretics or other heart failure treatments[E] [ ]v) Altered mental status that is severe or persistent [ ]vi) Increased creatinine (new on laboratory test) with reduction of more than 50% in estimated glomerular filtration rate from baseline [ ]vii) Progressively (ongoing) rising creatinine (known from past laboratory test) with reduction of more than 25% in estimated glomerular filtration rate from baseline [ ]viii) Acute renal failure [ ]ix) Acute peripheral ischemia (eg, examination shows pulseless, cool, mottled, or cyanotic extremity) [ ]x) Pulmonary artery catheter monitoring needed [ ]xi) Other sign or symptom of heart failure requiring inpatient treatment (ie, too severe or not responsive to outpatient and observation care treatment) [ ]c) Infection requiring inpatient management (eg, Hemodynamic instability, need for intravenous antimicrobial treatment)(66)(67)(68)(69)(70) [ ]d) Cardiac allograft vasculopathy requiring inpatient management ( eg evidence of cardiac ischemia)(71) [ ]e) Other complication of transplanted heart (eg, stroke, severe pulmonary hypertension, severe valvular dysfunction) requiring inpatient management(72) The original [facility] [employer] content created by [facility] [employer] has been revised. The portions of the content which have been revised are identified through the use of italic text or in bold, and [facility] has neither reviewed nor approved the modified material. All other unmodified content is copyright [facility] [employer]. Please see references footnoted in the original [facility] [employer] edition 2016 Admission Criteria Met: Yes
--- NOTE | 2017-01-18 09:58 | Progress Note ---
Assessment and Plan Hypertensive urgency Type II DM Morbid obesity SOL Abnormal ECG Non-compliance Recommendations: Titrate afterload reducing agents Discontinue lisinopril Increase carvedilol to 25 mg po bid Change hctz to chlorthalidone 25 mg po daily Wean NTG to off while maintaing SBP < 160 Change zocor to lipitor (less risk of drug-drug interaction) Reschedule lexiscan when patient is off nitroglycerin BG control per primary team Subjective Date of service: 01/18/17 Principal diagnosis: Hypertensive urgency Interval history: Patient is doing well this morning. He denies chest pain or shortness of breath. No events recorded on tele Objective Vital Signs Temp Pulse Resp BP BP BP Pulse Ox 01/18/17 08:00 98.0 F 01/18/17 06:15 85 25 H 143/79 95 01/18/17 06:00 90 22 131/84 93 01/18/17 05:45 88 19 143/90 97 01/18/17 05:30 85 20 133/83 95 01/18/17 05:15 91 H 20 149/88 92 01/18/17 05:00 86 19 162/84 92 01/18/17 04:48 91 H 01/18/17 04:45 94 H 21 153/93 94 01/18/17 04:30 94 H 22 156/103 96 01/18/17 04:15 90 22 174/102 94 01/18/17 04:00 96 H 22 170/107 95 01/18/17 03:48 99.2 F 98 H 15 161/115 01/18/17 03:45 93 H 13 160/100 92 01/18/17 03:30 100 H 15 161/115 90 01/18/17 03:15 97 H 19 193/121 92 01/18/17 03:00 100 H 24 174/106 93 01/18/17 02:45 97 H 29 H 170/105 96 01/18/17 02:30 94 H 23 165/106 92 01/18/17 02:15 96 H 21 177/113 01/18/17 02:01 95 H 15 187/111 93 01/18/17 01:57 96 01/18/17 01:15 18 171/103 97 01/18/17 01:05 96 H 177/100 01/18/17 01:00 90 17 186/113 186/113 95 01/18/17 00:45 92 H 12 173/88 173/88 96 01/18/17 00:30 95 H 30 H 179/104 179/104 98 01/18/17 00:15 97 H 26 H 177/103 177/111 98 01/18/17 00:09 99 H 34 H 97 01/18/17 00:00 97 H 20 169/88 98 01/17/17 23:45 98 H 20 163/98 98 01/17/17 23:30 98 H 18 149/93 98 01/17/17 23:28 87 20 98 01/17/17 23:15 88 20 163/94 98 01/17/17 23:00 94 H 20 171/100 95 01/17/17 22:50 94 H 20 171/100 99 01/17/17 22:45 87 16 184/120 96 01/17/17 22:30 88 18 167/103 96 01/17/17 22:15 94 H 20 170/113 97 01/17/17 22:00 87 9 L 179/117 93 01/17/17 21:45 81 18 188/102 98 01/17/17 21:30 82 18 181/108 95 01/17/17 21:15 83 12 168/99 96 01/17/17 21:00 80 14 157/98 99 01/17/17 20:45 85 16 151/85 98 - Physical Examination HEENT: Positive: PERRL Neck: Positive: neck supple Cardiac: Positive: Reg Rate and Rhythm Lungs: Positive: Normal Exam Neuro: Positive: Grossly Intact Abdomen: Positive: Soft Skin: Positive: Clear Extremities: Absent: edema - Labs and Meds Cardiac Enzymes 01/17/17 01/17/17 01/18/17 Range/Units 20:52 23:40 05:29 AST 9 (5-40) units/L CK-MB (CK-2) 1.1 1.1 (0.0-4.0) ng/mL 01/18/17 Range/Units 05:29 AST (5-40) units/L CK-MB (CK-2) < 1.0 (0.0-4.0) ng/mL CBC 01/18/17 Range/Units 05:29 WBC 7.8 (4.5-11.0) K/mm3 RBC 4.66 (3.65-5.03) M/mm3 Hgb 12.0 (11.8-15.2) gm/dl Hct 36.5 D (35.5-45.6) % Plt Count 230 (140-440) K/mm3 Lymph # 1.7 (1.2-5.4) K/mm3 [place] # 0.7 (0.0-0.8) K/mm3 Eos # 0.1 (0.0-0.4) K/mm3 Baso # 0.0 (0.0-0.1) K/mm3 Comprehensive Metabolic Panel 01/18/17 Range/Units 05:29 Sodium 138 (137-145) mmol/L Potassium 4.0 (3.6-5.0) mmol/L Chloride 100.8 (98-107) mmol/L Carbon Dioxide 24 (22-30) mmol/L BUN 15 (9-20) mg/dL Creatinine 0.8 (0.8-1.5) mg/dL Glucose 300 H (75-100) mg/dL Calcium 8.6 (8.4-10.2) mg/dL AST 9 (5-40) units/L ALT 8 (7-56) units/L Alkaline Phosphatase 70 (35-129) units/L Total Protein 6.8 (6.3-8.2) g/dL Albumin 3.3 L (3.9-5) g/dL - Imaging and Cardiology EKG: report reviewed (LVH with repolarization abnormalities )
[2017-01-18] MEDS ORDERED: COREG PO SCH (10:00)
[2017-01-18] MEDS ORDERED: LOVENOX SUB-Q SCH (10:00)
[2017-01-18] MEDS: HALFPRIN EC PO SCH (11:30)
--- NOTE | 2017-01-18 11:35 | Progress Note ---
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 He spoke to someone there who advised him that he should have his blood sugar checked which was found to be elevated. Patient began to experience tingling in his left side from his head to his foot. He also had some sort of discomfort in the left upper quadrant of his abdomen and the pericostal area anteriorly. This discomfort did not radiate. He states he did experience some tightness there. He did not refer to it as pain. The patient has a history of diabetes and hypertension.Not taking his meds for few months.BP was very high subsequently in the ER. He denies smoking. He denies a family history of significant coronary artery disease to his knowledge. He states he has never had any workup for cardiac problems. When the patient arrived in the emergency department his blood pressure was about 150/100. (1) Hypertensive emergency without congestive heart failure Current Visit: Yes Status: Acute Plan to address problem: Continue NTG drip, Patient to be counselled about compliance. Titrate afterload reducing agents Discontinue lisinopril Increase carvedilol to 25 mg po bid Change hctz to chlorthalidone 25 mg po daily Wean NTG to off while maintaing SBP < 160 Change zocor to lipitor (less risk of drug-drug interaction) Reschedule lexiscan when patient is off nitroglycerin BG control per primary team (2) Acute coronary syndrome Current Visit: Yes Status: Acute Plan to address problem: Patient staated on IV Heparin.Lexiscan and serial cardiac enzymes ordered (3) Uncontrolled diabetes mellitus Current Visit: Yes Status: Chronic Qualifiers: Diabetes mellitus type: type 2 Diabetes mellitus complication status: without complication Diabetes mellitus complication detail: D Diabetic retinopathy severity: D Proliferative retinopathy type: P Diabetes mellitus macular edema: D Diabetes mellitus jail insulin use: without watermelon inspector use Laterality: L Chronic kidney disease stage: C Qualified Code(s): E11.65 - Type 2 diabetes mellitus with hyperglycemia Plan to address problem: Patient in denial and not taking his Metformin which is not enough to treat his T2DM.He needs to be on Basal bolus regimen .His A1c is around 12. (4) TIA (transient ischemic attack) Current Visit: Yes Status: Acute Qualifiers: Transient cerebral ischemia type: unspecified Qualified Code(s): G45.9 - Transient cerebral ischemic attack, unspecified Plan to address problem: Patient has L sided Numbness.And persistent.Will treat it as TIA.Get MRI MRA CDS and Echo.Neuro consult requested. (5) DVT prophylaxis Current Visit: Yes Status: Acute (6) DVT prophylaxis Current Visit: Yes Status: Acute Plan to address problem: On Heparin drip Hypertensive urgency Type II DM Morbid obesity SOL Abnormal ECG Non-compliance Recommendations: Titrate afterload reducing agents Discontinue lisinopril Increase carvedilol to 25 mg po bid Change hctz to chlorthalidone 25 mg po daily Wean NTG to off while maintaing SBP < 160 Change zocor to lipitor (less risk of drug-drug interaction) Reschedule lexiscan when patient is off nitroglycerin BG control per primary team The high probability of a clinically significant, sudden or life threatening deterioration of the cardiovascular system required my full and direct attention , intervention and personal management. The aggregate critical care time was 32 minutes. This time is in addition to time spent performing reported procedures but includes the following: [] Data Review and interpretation [] Patient assessment and monitoring of vital signs [] Documentation [] Medication orders and management Hospitalist Physical - Constitutional Vitals: Temp Pulse Resp BP Pulse Ox 98.0 F 85 25 H 143/79 95 01/18/17 08:00 01/18/17 06:15 01/18/17 06:15 01/18/17 06:15 01/18/17 06:15 General appearance: Present: no acute distress, well-nourished Results - Labs CBC & Chem 7: 01/18/17 05:29 01/18/17 05:29 Labs: Laboratory Last Values WBC 7.8 K/mm3 (4.5-11.0) 01/18/17 05:29 RBC 4.66 M/mm3 (3.65-5.03) 01/18/17 05:29 Hgb 12.0 gm/dl (11.8-15.2) 01/18/17 05:29 Hct 36.5 % (35.5-45.6) D 01/18/17 05:29 MCV 79 fl (84-94) L 01/18/17 05:29 MCH 26 pg (28-32) L 01/18/17 05:29 MCHC 33 % (32-34) 01/18/17 05:29 RDW 15.3 % (13.2-15.2) H 01/18/17 05:29 Plt Count 230 K/mm3 (140-440) 01/18/17 05:29 Lymph % (Auto) 21.2 % (13.4-35.0) 01/18/17 05:29 [place] % (Auto) 8.6 % (0.0-7.3) H 01/18/17 05:29 Eos % (Auto) 1.6 % (0.0-4.3) 01/18/17 05:29 Baso % (Auto) 0.6 % (0.0-1.8) 01/18/17 05:29 Lymph # 1.7 K/mm3 (1.2-5.4) 01/18/17 05:29 [place] # 0.7 K/mm3 (0.0-0.8) 01/18/17 05:29 Eos # 0.1 K/mm3 (0.0-0.4) 01/18/17 05:29 Baso # 0.0 K/mm3 (0.0-0.1) 01/18/17 05:29 Seg Neutrophils % 68.0 % (40.0-70.0) 01/18/17 05:29 Seg Neutrophils # 5.3 K/mm3 (1.8-7.7) 01/18/17 05:29 PT 13.0 Sec. (12.2-14.9) 01/17/17 16:15 INR 0.99 (0.87-1.13) 01/17/17 16:15 APTT 22.5 Sec. (24.2-36.6) L 01/17/17 16:15 Heparin Anti-Xa Level 0.12 U.I./ml (0.3-0.7) L 01/18/17 09:58 VBG pH 7.330 (7.320-7.420) 01/17/17 16:15 Sodium 138 mmol/L (137-145) 01/18/17 05:29 Potassium 4.0 mmol/L (3.6-5.0) 01/18/17 05:29 Chloride 100.8 mmol/L (98-107) 01/18/17 05:29 Carbon Dioxide 24 mmol/L (22-30) 01/18/17 05:29 Anion Gap 17 mmol/L 01/18/17 05:29 BUN 15 mg/dL (9-20) 01/18/17 05:29 Creatinine 0.8 mg/dL (0.8-1.5) 01/18/17 05:29 Estimated GFR > 60 ml/min 01/18/17 05:29 BUN/Creatinine Ratio 18.75 % 01/18/17 05:29 Glucose 300 mg/dL (75-100) H 01/18/17 05:29 POC Glucose 268 (70-105) H 01/18/17 07:49 Hemoglobin A1c 12.3 % (4-6) H 01/17/17 20:52 Calcium 8.6 mg/dL (8.4-10.2) 01/18/17 05:29 Total Bilirubin 0.30 mg/dL (0.1-1.2) 01/18/17 05:29 AST 9 units/L (5-40) 01/18/17 05:29 ALT 8 units/L (7-56) 01/18/17 05:29 Alkaline Phosphatase 70 units/L (35-129) 01/18/17 05:29 Total Creatine Kinase 65 units/L (55-170) 01/18/17 05:29 CK-MB (CK-2) < 1.0 ng/mL (0.0-4.0) 01/18/17 05:29 CK-MB (CK-2) Rel Index 1.5 (0-4) 01/18/17 05:29 Troponin T < 0.010 ng/mL (0.00-0.029) 01/18/17 05:29 Total Protein 6.8 g/dL (6.3-8.2) 01/18/17 05:29 Albumin 3.3 g/dL (3.9-5) L 01/18/17 05:29 Albumin/Globulin Ratio 0.9 % 01/18/17 05:29 Lipase 132 units/L (13-60) H 01/17/17 16:15 Urine Color Yellow (Yellow) 01/17/17 18:50 Urine Turbidity Clear (Clear) 01/17/17 18:50 Urine pH 5.0 (5.0-7.0) 01/17/17 18:50 Ur Specific [place] 1.021 (1.003-1.030) 01/17/17 18:50 Urine Protein 100 mg/dl mg/dL (Negative) 01/17/17 18:50 Urine Glucose (UA) 150 mg/dL (Negative) 01/17/17 18:50 Urine Ketones Neg mg/dL (Negative) 01/17/17 18:50 Urine Blood Neg (Negative) 01/17/17 18:50 Urine Nitrite Neg (Negative) 01/17/17 18:50 Urine Bilirubin Neg (Negative) 01/17/17 18:50 Urine Urobilinogen 2.0 mg/dL (<2.0) 01/17/17 18:50 Ur Leukocyte Esterase Neg (Negative) 01/17/17 18:50 Urine WBC (Auto) 6.0 /HPF (0.0-6.0) 01/17/17 18:50 Urine RBC (Auto) 4.0 /HPF (0.0-6.0) 01/17/17 18:50 U Epithel Cells (Auto) < 1.0 /HPF (0-13.0) 01/17/17 18:50 Urine Mucus 2+ /HPF 01/17/17 18:50
[2017-01-18] MEDS: DIOVAN PO SCH ×2 (11:38→22:22)
[2017-01-18] MEDS: COREG PO SCH ×2 (11:39→22:23)
--- NOTE | 2017-01-18 11:52 | Consultation ---
History of Present Illness Consult date: 01/18/17 Requesting physician: WILLIAM RODRIGUEZ Reason for Consult: TIA Chief complaint: left sided tingling History of present illness: 51 YO M Hx HTN p/w epsiode of L sided tingling onset 01/16 @ 8-9 AM. Sx lasted 24 hrs. There were no clear aggravating, relieving or temporal factors. Severity was enough to cause concern for stroke. Past History Past Medical History: diabetes, hypertension Past Surgical History: No surgical history Social history: single. denies: smoking, alcohol abuse, prescription drug abuse Family history: hypertension Medications and Allergies Allergies Allergy/AdvReac Type Severity Reaction Status Date / Time No Known Allergies Allergy Unverified 11/21/14 22:57 Home Medications Medication Instructions Recorded Confirmed Last Taken Type No Known Home Medications [No 01/17/17 01/17/17 Unknown History Reported Home Medications] Active Meds: Active Medications Acetaminophen (Tylenol) 650 mg PO Q4H PRN PRN Reason: Pain MILD(1-3)/Fever >100.5/TSE Aspirin (Halfprin Ec) 81 mg PO QDAY SAW Atorvastatin Calcium (Lipitor) 40 mg PO QHS SAW Bisacodyl (Dulcolax) 10 mg GA QDAY PRN PRN Reason: Constipation unrelieved by MOM Carvedilol (Coreg) 25 mg PO BID [facility] Last Admin: 01/18/17 11:39 Dose: 25 mg Chlorthalidone (Thalitone) 25 mg PO QDAY SAW Clonidine HCl (Catapres) 0.1 mg PO Q8H [facility] Last Admin: 01/18/17 03:48 Dose: 0.1 mg Nitroglycerin/Dextrose (Tridil Drip 50mg/250ml) 50 mg in 250 mls @ 3 mls/hr IV TITR ONE; 10 MCG/MIN PRN Reason: Protocol Stop: 01/21/17 03:45 Last Titration: 01/17/17 19:30 Dose: 30 mcg/min, 9 mls/hr Nitroglycerin/Dextrose (Tridil Drip 50mg/250ml) 50 mg in 250 mls @ 3 mls/hr IV TITR SAW; 10 MCG/MIN PRN Reason: Protocol Insulin Aspart (Novolog) 0 units SUB-Q ACHS SAW PRN Reason: Protocol Last Admin: 01/18/17 08:00 Dose: 4 units Insulin Aspart (Novolog) 8 units SUB-Q ACHS [facility] Last Admin: 01/18/17 08:00 Dose: 8 units Insulin Detemir (Levemir) 20 units SUB-Q QHS [facility] Magnesium Hydroxide (Milk Of Magnesia) 30 ml PO Q4H PRN PRN Reason: Constipation Metformin HCl (Glucophage) 500 mg PO BIDDIAB [facility] Last Admin: 01/18/17 08:00 Dose: 500 mg Ondansetron HCl (Zofran) 4 mg IV Q8H PRN PRN Reason: N/V unrelieved by Reglan Oxycodone/Acetaminophen (Percocet 5/325) 1 tab PO Q6H PRN PRN Reason: Pain, Moderate (4-6) Last Admin: 01/18/17 03:48 Dose: 1 tab Pneumococcal Polyvalent Vaccine (Pneumovax 23) 0.5 ml IM .ONCE ONE Stop: 01/18/17 12:01 Sodium Chloride (Sodium Chloride Flush Syringe 10 Ml) 10 ml IV PRN PRN PRN Reason: LINE FLUSH Sodium Chloride (Sodium Chloride Flush Syringe 10 Ml) 10 ml IV PRN PRN PRN Reason: LINE FLUSH Tramadol HCl (Ultram) 50 mg PO Q6H PRN PRN Reason: Pain Valsartan (Diovan) 160 mg PO BID [facility] Last Admin: 01/18/17 11:38 Dose: 160 mg Review of Systems All systems: negative Eyes: bilateral: blurred vision Neurological: parathesias, numbness, tingling, headaches, no transient paralysis , no weakness, no change in speech, no balance difficulties, no gait dysfunction , no motor disturbance, no double vision, no loss of vision Physical Examination - Vital Signs Vital Signs: Vital Signs Temp Pulse Resp BP Pulse Ox 98.2 F 92 H 20 160/110 98 01/17/17 15:44 01/17/17 15:44 01/17/17 15:44 01/17/17 15:44 01/17/17 15:44 - Constitutional General appearance: comfortable - EENT EENT: Present: ATNC, PERRL, mucous membranes moist, hearing intact, vision intact - Respiratory Respiratory: Present: chest non-tender, normal breath sounds, no respiratory distress - Cardiovascular Cardiovascular: Present: regular rate Extremities: Present: no peripheral edema bilatateraly, no clubbing, cyanosis, no inflammation, no ischemia or petechiae - Gastrointestinal Gastrointestinal: Present: normoactive bowel sounds, soft, non-distended - Integumentary Integumentary: Present: normal - Neurologic Cranial nerve examination: PERRL, EOMI, VFF, V1/V2/V3 grossly intact, tongue midline, intact, intact shoulder shrug, intact cough reflex, Intact Vestibulo- ocular r, intact corneal reflex, facial droop (slight on R ? baseline) Speech examination: intact Sensorimotor examination: intact Detailed motor examination: full strength in all irene Motor examination - right side: 5: biceps, triceps, wrist flexion, wrist extension, petroleum inspector supervisor, hip flexors, knee extensors, dorsiflexion, toe extension (EHL) , plantarflexion Motor examination - left side: 5/: biceps, triceps, wrist flexion, wrist extension, petroleum inspector supervisor, hip flexors, knee extensors, dorsiflexion, toe extension (EHL) , plantarflexion Detailed sensory examination: intact, light touch, temperature Reflex and gait examination: intact Reflexes: 0: ankle, 2+: bicep, knee, tricep - Musculoskeletal Musculoskeletal: Present: no fluid collection, no pain, normal range of motion - Psychiatric Psychiatric: Present: mood/affect appropriate, cooperative Results - Laboratory Findings CBC and BMP: 01/18/17 05:29 01/18/17 05:29 Abnormal Lab Findings: Abnormal Labs 01/17/17 01/18/17 01/18/17 20:52 00:51 05:29 MCV 79 L MCH 26 L RDW 15.3 H Lynn % (Auto) 8.6 H Heparin Anti-Xa Level 0.10 L Glucose POC Glucose Hemoglobin A1c 12.3 H Albumin 01/18/17 01/18/17 01/18/17 05:29 07:49 09:58 MCV MCH RDW [place] % (Auto) Heparin Anti-Xa Level 0.12 L Glucose 300 H POC Glucose 268 H Hemoglobin A1c Albumin 3.3 L Assessment and Plan 51 YO M Hx DM2/HTN not on AP p/w 24 hrs episode of L sided tingling assoc w/ elevated BP up to 213/133 and CBG into 300. I suspect HTN emergency but will r/ o stroke. 1. No indication for pharmacologic thrombolysis with IV tPA or mechanical thrombectomy due to last known normal > 6 hrs from presentation. Current NIHSS 1 for R facial droop? baseline. 2. Telemetry bed w/ Q4 hour neuro checks 3. Brain imaging: MRI Brain w/o U[place]ano Stroke Protocol 4. If MRI Brain confirms infarct: A. Vascular Imaging: MRA Head w/o Urbano & MRA Neck w/ U[place]ano Stroke Protocol OR CTA Head/Neck w/ Contrast OR Bilateral Carotid Duplex U/S B. TTE to eval for possible cardiac source of embolism C. Serum Labs: HgA1c, LDL 5. Permissive HTN for first 24-48 hours: HOB < 30 degrees, isotonic IVF prn and refrain from active Tx of HTN unless BP > 185/105 or pt develops malignant HTN. Can lower MAPs by 10-15% daily to reach goal SBP 120-160 after permissive HTN period or if MRI neg for infarction. 6. Secondary stroke prevention: ASA 325mg Daily x 1 then 81mg QDay & upgrade to full dose statin therapy (Crestor 20mg or 40mg OR Lipitor 40mg or 80mg Daily OR Zocor 40mg QDay) for goal LDL < 70.If MRI neg for infarct there is no neurologic indication for ASA/statin change/institution. 7. F/E/N: isotonic IVF prn, prn replete, bedside speech/swallow eval prior to PO intake 8. DVT Prophylaxis 9. Stroke education, PT/OT/Speech Therapy consults, CM evaluation 10. For any changes in neurologic status, pls obtain STAT CTH w/o contrast and call neurology
[2017-01-18] MEDS ORDERED: PNEUMOVAX 23 IM ONE (12:00)
[2017-01-18] MEDS: THALITONE PO SCH (12:15)
[2017-01-18] MEDS ORDERED: ZOCOR PO SCH (22:00)
[2017-01-18] MEDS: LEVEMIR SUB-Q SCH (22:34)
[2017-01-19] MEDS: CATAPRES PO SCH ×3 (04:10→22:36)
[2017-01-19 08:31] LABS: Hematocrit 36.2 % (35.5-45.6)
[2017-01-19] MEDS: GLUCOPHAGE PO SCH ×2 (08:31→17:14)
[2017-01-19] MEDS: NOVOLOG SUB-Q SCH ×8 (08:31→22:33)
--- NOTE | 2017-01-19 09:09 | Progress Note ---
Assessment and Plan Hypertensive urgency Type II DM Morbid obesity SOL Non-compliance EF 6065% on echocardiogram Subjective Date of service: 01/19/17 Principal diagnosis: Hypertensive urgency Interval history: No cardiac events on telemetry overnight. Objective Vital Signs Temp Pulse Pulse Pulse Pulse Resp BP 01/19/17 07:32 98.7 F 78 20 01/19/17 04:10 98.2 F 82 82 20 133/74 01/19/17 00:28 98.5 F 82 22 125/69 01/18/17 22:27 94 H 132/64 01/18/17 22:23 94 H 132/64 01/18/17 22:22 94 H 132/64 01/18/17 22:00 96 H 01/18/17 21:10 100.6 F H 94 H 20 134/64 01/18/17 21:00 92 H 94 H 20 01/18/17 19:45 92 H 11 L 143/97 01/18/17 19:30 89 25 H 137/76 01/18/17 19:15 88 29 H 134/81 01/18/17 19:00 92 H 25 H 132/81 01/18/17 18:45 84 27 H 144/79 01/18/17 18:30 88 27 H 143/81 01/18/17 18:15 89 28 H 150/89 01/18/17 18:01 98 H 20 154/85 01/18/17 17:45 91 H 25 H 134/94 01/18/17 17:30 92 H 28 H 139/87 01/18/17 17:15 91 H 28 H 139/94 01/18/17 17:00 90 26 H 129/79 01/18/17 16:45 90 27 H 130/79 01/18/17 16:40 99.2 F 01/18/17 16:30 89 30 H 128/75 01/18/17 16:15 94 H 21 138/83 01/18/17 16:10 99.2 F 01/18/17 16:00 138/76 01/18/17 15:45 94 H 9 L 129/81 01/18/17 15:31 88 13 133/80 01/18/17 15:15 89 24 133/80 01/18/17 15:00 88 26 H 126/71 01/18/17 14:45 88 28 H 133/73 01/18/17 14:30 87 28 H 132/77 01/18/17 14:15 90 30 H 124/75 01/18/17 14:00 90 21 125/75 01/18/17 13:45 94 H 19 143/83 01/18/17 13:30 91 H 28 H 128/81 01/18/17 13:15 90 30 H 142/77 01/18/17 13:00 92 H 29 H 132/80 01/18/17 12:54 98.9 F 01/18/17 12:45 92 H 32 H 143/78 01/18/17 12:42 144/83 01/18/17 12:30 97 H 27 H 142/83 01/18/17 12:15 93 H 14 143/91 01/18/17 12:00 93 H 26 H 143/91 01/18/17 11:45 92 H 24 145/84 01/18/17 11:39 134/83 01/18/17 11:38 134/83 01/18/17 11:30 97 H 20 134/83 01/18/17 11:15 97 H 28 H 137/82 01/18/17 11:00 97 H 20 139/82 01/18/17 10:45 97 H 20 139/87 01/18/17 10:30 100 H 29 H 141/86 01/18/17 10:15 99 H 20 143/84 01/18/17 10:00 104 H 14 145/88 01/18/17 09:45 107 H 15 144/89 01/18/17 09:30 100 H 19 149/76 01/18/17 09:15 97 H 27 H 142/80 BP BP Pulse Ox 01/19/17 07:32 131/71 131/71 4 L 01/19/17 04:10 98 01/19/17 00:28 96 01/18/17 22:27 01/18/17 22:23 01/18/17 22:22 01/18/17 22:00 01/18/17 21:10 100 01/18/17 21:00 01/18/17 19:45 93 01/18/17 19:30 93 01/18/17 19:15 87 01/18/17 19:00 92 01/18/17 18:45 97 01/18/17 18:30 98 01/18/17 18:15 93 01/18/17 18:01 94 01/18/17 17:45 97 01/18/17 17:30 98 01/18/17 17:15 98 01/18/17 17:00 97 01/18/17 16:45 100 01/18/17 16:40 01/18/17 16:30 97 01/18/17 16:15 92 01/18/17 16:10 01/18/17 16:00 90 01/18/17 15:45 91 01/18/17 15:31 95 01/18/17 15:15 01/18/17 15:00 98 01/18/17 14:45 96 01/18/17 14:30 98 01/18/17 14:15 99 01/18/17 14:00 95 01/18/17 13:45 94 01/18/17 13:30 95 01/18/17 13:15 96 01/18/17 13:00 97 01/18/17 12:54 01/18/17 12:45 95 01/18/17 12:42 01/18/17 12:30 01/18/17 12:15 98 01/18/17 12:00 98 01/18/17 11:45 95 01/18/17 11:39 01/18/17 11:38 01/18/17 11:30 01/18/17 11:15 96 01/18/17 11:00 94 01/18/17 10:45 01/18/17 10:30 95 01/18/17 10:15 93 01/18/17 10:00 94 01/18/17 09:45 94 01/18/17 09:30 94 01/18/17 09:15 93 - Physical Examination Cardiac: Positive: Reg Rate and Rhythm - Labs and Meds Lipids 01/19/17 Range/Units 06:47 Triglycerides 99 (2-149) mg/dL Cholesterol 179 (50-199) mg/dL HDL Cholesterol 38 L (40-59) mg/dL Cholesterol/HDL Ratio 4.71 % CBC 01/19/17 Range/Units 06:47 Hgb 12.0 (11.8-15.2) gm/dl Hct 36.2 (35.5-45.6) % Plt Count 222 (140-440) K/mm3 - Imaging and Cardiology EKG: report reviewed (LVH with repolarization abnormalities )
[2017-01-19] MEDS: THALITONE PO SCH (10:11)
[2017-01-19] MEDS: DIOVAN PO SCH ×2 (10:11→22:30)
[2017-01-19] MEDS: HALFPRIN EC PO SCH (10:11)
[2017-01-19] MEDS: COREG PO SCH ×2 (10:11→22:31)
--- NOTE | 2017-01-19 16:09 | Discharge Summary ---
Providers - Providers Date of Admission: 01/17/17 20:43 Attending physician: NINFA ZAMORA MD 01/17/17 Consult to Cardiac Rehabilitation [CONS] Routine Reason For Exam: Phase I 01/18/17 06:45 Consult to Dietitian/Nutrition [CONS] Routine Physician Instructions: Uncontrolled T2DM Reason For Exam: T2DM Reason for Consult: Nutrition Recommendations Reason for Consult: Diet education 01/18/17 06:49 Occupational Therapy Evaluate and Treat [CONS] Routine Comment: Reason For Exam: Neuro deficits Physical Therapy Evaluation and Treat [CONS] Routine Comment: Reason For Exam: Neuro deficits 01/18/17 06:53 Consult to Physician [CONS] Routine Consulting Provider: АНДРЕЙ LOU Reason For Exam: TIA Place consult to:: seema Notified:: maryjane hernandez Phone number called:: [phone] Was contact made?: No If yes, spoke with:: left message Time called:: 09:25 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 He spoke to someone there who advised him that he should have his blood sugar checked which was found to be elevated. Patient began to experience tingling in his left side from his head to his foot. He also had some sort of discomfort in the left upper quadrant of his abdomen and the pericostal area anteriorly. This discomfort did not radiate. He states he did experience some tightness there. He did not refer to it as pain. The patient has a history of diabetes and hypertension.Not taking his meds for few months.BP was very high subsequently in the ER. He denies smoking. He denies a family history of significant coronary artery disease to his knowledge. He states he has never had any workup for cardiac problems. When the patient arrived in the emergency department his blood pressure was about 150/100. (1) Hypertensive emergency without congestive heart failure Current Visit: Yes Status: Acute Plan to address problem: Continue NTG drip, Patient to be counselled about compliance. Titrate afterload reducing agents Discontinue lisinopril Increase carvedilol to 25 mg po bid Change hctz to chlorthalidone 25 mg po daily Wean NTG to off while maintaing SBP < 160 Change zocor to lipitor (less risk of drug-drug interaction) Reschedule lexiscan when patient is off nitroglycerin BG control per primary team (2) Acute coronary syndrome Current Visit: Yes Status: Acute Plan to address problem: Patient staated on IV Heparin.Lexiscan and serial cardiac enzymes ordered (3) Uncontrolled diabetes mellitus Current Visit: Yes Status: Chronic Qualifiers: Diabetes mellitus type: type 2 Diabetes mellitus complication status: without complication Diabetes mellitus complication detail: D Diabetic retinopathy severity: D Proliferative retinopathy type: P Diabetes mellitus macular edema: D Diabetes mellitus predatory animal exterminator insulin use: without predatory animal exterminator use Laterality: L Chronic kidney disease stage: C Qualified Code(s): E11.65 - Type 2 diabetes mellitus with hyperglycemia Plan to address problem: Patient in denial and not taking his Metformin which is not enough to treat his T2DM.He needs to be on Basal bolus regimen .His A1c is around 12. (4) TIA (transient ischemic attack) Current Visit: Yes Status: Acute Qualifiers: Transient cerebral ischemia type: unspecified Qualified Code(s): G45.9 - Transient cerebral ischemic attack, unspecified Plan to address problem: Patient has L sided Numbness.And persistent.Will treat it as TIA.Get MRI MRA CDS and Echo.Neuro consult requested. (5) DVT prophylaxis Current Visit: Yes Status: Acute (6) DVT prophylaxis Current Visit: Yes Status: Acute Plan to address problem: On Heparin drip Hypertensive urgency TIA Type II DM Morbid obesity SOL Abnormal ECG Non-compliance Disposition: DC/TX-06 HOME [facility] Time spent for discharge: 35 minutes Core Measure Documentation - Palliative Care Palliative Care/ Comfort Measures: Not Applicable - Core Measures Any of the following diagnoses?: stroke - Stroke Discharge Requirements Statin for LDL = or >70 mg/dl on DC: Yes Anticoag for atrial fib/atrial flutter: Not Applicable Antithrombotic for ischemic stroke: Yes Exam - Constitutional Vitals: Temp Pulse Resp BP Pulse Ox 98.7 F 76 20 131/71 98 01/19/17 07:32 01/19/17 12:09 01/19/17 12:09 01/19/17 07:32 01/19/17 12:09 General appearance: Present: no acute distress, well-nourished - EENT Eyes: Present: PERRL ENT: hearing intact, clear oral mucosa - Neck Neck: Present: supple, normal ROM - Respiratory Respiratory effort: normal Respiratory: bilateral: CTA - Cardiovascular Heart Sounds: Present: S1 & S2. Absent: rub, click - Extremities Extremities: pulses symmetrical, No edema Peripheral Pulses: within normal limits - Abdominal General gastrointestinal: Present: soft, non-tender, non-distended, normal bowel sounds Male genitourinary: Present: normal - Integumentary Integumentary: Present: clear, warm, dry - Musculoskeletal Musculoskeletal: gait normal, strength equal bilaterally - Psychiatric Psychiatric: appropriate mood/affect, intact judgment & insight - Neurologic Neurologic: CNII-XII intact, moves all extremities Plan Follow up with: PRIMARY CARE, [Primary Care Provider] - 3-5 Days Prescriptions: AtorvaSTATin [Lipitor] 40 mg PO QHS #30 tablet Insulin Detemir [Levemir VIAL] 25 unit SQ QHS #1 vial Aspirin EC [Aspirin Enteric Coated TAB] 81 mg PO QDAY #30 tablet Carvedilol [Coreg] 25 mg PO BID #120 tablet Chlorthalidone [Thalitone] 25 mg PO QDAY #30 tablet cloNIDine [Catapres] 0.1 mg PO BID #90 tablet Clopidogrel [Plavix] 75 mg PO QDAY #30 tablet Metformin HCl [Glucophage] 1,000 mg PO BID #60 tablet Valsartan [Diovan] 160 mg PO BID #60 tablet Other Discharge Orders: Glucometer (Amb) Location: Determined By Patient Glucometer supplies[Amb] Location: Determined By Patient
--- NOTE | 2017-01-19 19:08 | Magnetic Resonance Report ---
FINAL REPORT PROCEDURE: MR BRAIN WO CON TECHNIQUE: Magnetic resonance imaging of the brain was performed without contrast material. HISTORY: Left-sided tingling. COMPARISON: CT scan of the brain dated 01/17/2017. FINDINGS: Skull base and calvarium: Normal. Paranasal sinuses: Mild scattered ethmoid sinusitis. Cerebellum: Cannot exclude small 2-3 millimeter areas of abnormal restricted diffusion with correlative ADC abnormal signal intensity in the right cerebellum. A few small 3-4 millimeter areas of abnormal CSF signal intensity in the cerebellum bilaterally. Cerebrum: 4 millimeter area of abnormal signal intensity in the right paramedian posterior midbrain/dahlia, high signal intensity on diffusion-weighted imaging and low signal intensity on ADC images. Similar crescentic area of abnormal signal intensity in the right lateral midbrain/dahlia measuring up to 11 x 4 millimeters. Scattered areas of abnormal periventricular and subcortical white matter signal intensity, best seen on FLAIR imaging. These do not exhibit abnormal restricted diffusion. Small areas of CSF abnormal signal intensity in the bilateral basal ganglia and left centrum semiovale. Similar findings in the medulla. Ventricles: Normal in size and morphology for the patient's age. Pituitary gland and sella: Normal. Globes and orbits: Normal. Vasculature: Normal arterial and venous flow voids. Other: None. IMPRESSION: Areas of restricted diffusion in the right paramedian and right lateral midbrain/dahlia, concerning for acute ischemia. Cannot exclude similar 2-3 millimeter areas in the right cerebellum. Smaller areas of abnormal CSF signal intensity in the left centrum semiovale, bilateral basal ganglia, medulla, and cerebellum likely lacunes. Periventricular white matter abnormal signal intensity likely chronic small vessel ischemic change. Also consider demyelination or infectious/inflammatory process. Mild sinusitis.
[2017-01-19] MEDS: LEVEMIR SUB-Q SCH (22:32)
[2017-01-20] MEDS: CATAPRES PO SCH (04:26)
[2017-01-20] MEDS ORDERED: LEXISCAN IV ONE ×2 (08:32→08:38)
[2017-01-20] MEDS ORDERED: PLAVIX PO SCH (10:00)
--- NOTE | 2017-01-20 11:19 | Event Note ---
Date: 01/20/17 I attempted to see this patient between my scheduled coverage time of 8 AM-12 PM but they were not present in the floor room. I will return to staff in f/u consultation 01/23. 51 YO M Hx DM2/HTN not on AP p/w 24 hrs episode of L sided tingling assoc w/ elevated BP up to 213/133 and CBG into 300. I suspected HTN emergency but MRI Brain reveals multifocal brainstem stroke. TTE neg. LDL 122. Recs: 1. No indication for pharmacologic thrombolysis with IV tPA or mechanical thrombectomy due to last known normal > 6 hrs from presentation. Current NIHSS 1 for R facial droop? baseline. 2. Telemetry bed w/ Q4 hour neuro checks 3. Vascular Imaging: CTA Head/Neck w/ Contrast 4. Can lower MAPs by 10-15% daily to reach goal SBP 120-160 5. Secondary stroke prevention: ASA 325mg Daily x 1 then 81mg QDay & upgrade to full dose statin therapy (Crestor 20mg or 40mg OR Lipitor 40mg or 80mg Daily OR Zocor 40mg QDay) for goal LDL < 70. 6. F/E/N: isotonic IVF prn, prn replete, bedside speech/swallow eval prior to PO intake 7. DVT Prophylaxis 8. Stroke education, PT/OT/Speech Therapy consults, CM evaluation 9. For any changes in neurologic status, pls obtain STAT CTH w/o contrast and call neurology 10. If CTA neg beyond intracranial athero and findings consistent with known stroke, neuro clear for discharge over weekend assuming pt remains stable.
--- NOTE | 2017-01-20 11:36 | Progress Note ---
Assessment and Plan Hypertensive urgency - BP is better controlled Normal LVEF by echo No ischemia by MPI this admission Brainstem lesions of MRI concerning for demyelination/inflammatory disease Type II DM Morbid obesity SOL Abnormal ECG Non-compliance Recommendations: Continue current management No further cardiac interventions Subjective Date of service: 01/20/17 Principal diagnosis: Hypertensive urgency Interval history: No events overnight Lexiscan performed - no complications Objective Vital Signs Temp Pulse Pulse Resp BP BP BP 01/20/17 07:45 98.2 F 74 20 128/78 01/20/17 05:32 98.2 F 74 18 138/74 138/74 01/20/17 04:26 74 130/76 01/20/17 00:04 97.7 F 78 18 143/97 143/97 01/19/17 22:36 78 141/80 01/19/17 22:31 78 141/80 01/19/17 22:30 78 141/80 01/19/17 22:00 83 18 01/19/17 19:57 98.7 F 78 20 141/80 141/80 01/19/17 15:17 98.7 F 76 20 127/75 127/75 01/19/17 12:09 76 20 Pulse Ox 01/20/17 07:45 2 L 01/20/17 05:32 94 01/20/17 04:26 01/20/17 00:04 97 01/19/17 22:36 01/19/17 22:31 01/19/17 22:30 01/19/17 22:00 97 01/19/17 19:57 98 01/19/17 15:17 94 01/19/17 12:09 98 - Physical Examination HEENT: Positive: PERRL Neck: Positive: neck supple Cardiac: Positive: Reg Rate and Rhythm Lungs: Positive: Normal Exam Neuro: Positive: Grossly Intact Abdomen: Positive: Soft Skin: Positive: Clear Extremities: Absent: edema - Imaging and Cardiology EKG: report reviewed (LVH with repolarization abnormalities )
[2017-01-20 14:03] VITALS: BP 126/84
--- NOTE | 2017-01-20 14:49 | Cat Scan Report ---
CTA of the neck: History: Left-sided neurologic symptoms. CTA of the neck is performed with transverse images from the skull base to the upper chest. The raw images are not optimal. 3-D MIP images were obtained with improved information. Both common carotid arteries are widely patent as are the bifurcations. Both internal and external carotid arteries are patent with no evidence of hemodynamically significant stenosis. The vertebral arteries are generally equal in size and both are patent into the skull. Of incidental note are several submental lymph nodes. Impression: No significant cervical arterial vascular disease identified. CT angiogram head: Posterior circulation stroke. Transverse images are obtained through the skull. 3-D MIP reconstructions were obtained. The internal carotid arteries are widely patent bilaterally. The anterior cerebral and middle cerebral arteries are patent with normal middle cerebral divisions. No peripheral vascular disease is identified. The intracranial portions of the vertebral arteries as well as the basilar artery are widely patent. The posterior cerebral arteries are identified and appear patent bilaterally. No evidence of stenosis identified in these vessels. No peripheral vascular occlusions or significant stenoses identified in the posterior circulation. Impressions: No intracranial vascular disease identified. Of incidental note is mucoperiosteal thickening in the left sphenoid sinus and both maxillary sinuses.
--- NOTE | 2017-01-20 23:08 | Treadmill Report ---
INDICATION: Chest pain. ORDERING PHYSICIAN: Bridger Lake MD. FINDINGS: There is no scintigraphic evidence of myocardial ischemia. The left ventricle is normal in size and systolic function. Normal wall motion and wall thickening is noted on gated imaging. Left ventricular ejection fraction is measured at 47%. CONCLUSION: 1. Normal perfusion scan. 2. Mildly reduced left ventricular systolic function with an ejection fraction measured at 47%. JOB# [id number] AKD/NTS
--- NOTE | 2017-01-21 12:43 | Progress Note ---
Hospitalist Physical - Constitutional Vitals: Temp Pulse Resp BP Pulse Ox 99.1 F 82 20 126/84 97 01/20/17 12:30 01/20/17 12:30 01/20/17 12:30 01/20/17 12:30 01/20/17 12:30 General appearance: Present: no acute distress, well-nourished Results - Labs CBC & Chem 7: 01/19/17 06:47 01/18/17 05:29 Labs: Laboratory Last Values WBC 7.8 K/mm3 (4.5-11.0) 01/18/17 05:29 RBC 4.66 M/mm3 (3.65-5.03) 01/18/17 05:29 Hgb 12.0 gm/dl (11.8-15.2) 01/19/17 06:47 Hct 36.2 % (35.5-45.6) 01/19/17 06:47 MCV 79 fl (84-94) L 01/18/17 05:29 MCH 26 pg (28-32) L 01/18/17 05:29 MCHC 33 % (32-34) 01/18/17 05:29 RDW 15.3 % (13.2-15.2) H 01/18/17 05:29 Plt Count 222 K/mm3 (140-440) 01/19/17 06:47 Lymph % (Auto) 21.2 % (13.4-35.0) 01/18/17 05:29 [place] % (Auto) 8.6 % (0.0-7.3) H 01/18/17 05:29 Eos % (Auto) 1.6 % (0.0-4.3) 01/18/17 05:29 Baso % (Auto) 0.6 % (0.0-1.8) 01/18/17 05:29 Lymph # 1.7 K/mm3 (1.2-5.4) 01/18/17 05:29 [place] # 0.7 K/mm3 (0.0-0.8) 01/18/17 05:29 Eos # 0.1 K/mm3 (0.0-0.4) 01/18/17 05:29 Baso # 0.0 K/mm3 (0.0-0.1) 01/18/17 05:29 Seg Neutrophils % 68.0 % (40.0-70.0) 01/18/17 05:29 Seg Neutrophils # 5.3 K/mm3 (1.8-7.7) 01/18/17 05:29 PT 13.0 Sec. (12.2-14.9) 01/17/17 16:15 INR 0.99 (0.87-1.13) 01/17/17 16:15 APTT 22.5 Sec. (24.2-36.6) L 01/17/17 16:15 Heparin Anti-Xa Level 0.12 U.I./ml (0.3-0.7) L 01/18/17 09:58 VBG pH 7.330 (7.320-7.420) 01/17/17 16:15 Sodium 138 mmol/L (137-145) 01/18/17 05:29 Potassium 4.0 mmol/L (3.6-5.0) 01/18/17 05:29 Chloride 100.8 mmol/L (98-107) 01/18/17 05:29 Carbon Dioxide 24 mmol/L (22-30) 01/18/17 05:29 Anion Gap 17 mmol/L 01/18/17 05:29 BUN 15 mg/dL (9-20) 01/18/17 05:29 Creatinine 0.8 mg/dL (0.8-1.5) 01/18/17 05:29 Estimated GFR > 60 ml/min 01/18/17 05:29 BUN/Creatinine Ratio 18.75 % 01/18/17 05:29 Glucose 300 mg/dL (75-100) H 01/18/17 05:29 POC Glucose 247 (70-105) H 01/20/17 12:45 Hemoglobin A1c 12.3 % (4-6) H 01/17/17 20:52 Calcium 8.6 mg/dL (8.4-10.2) 01/18/17 05:29 Total Bilirubin 0.30 mg/dL (0.1-1.2) 01/18/17 05:29 AST 9 units/L (5-40) 01/18/17 05:29 ALT 8 units/L (7-56) 01/18/17 05:29 Alkaline Phosphatase 70 units/L (35-129) 01/18/17 05:29 Total Creatine Kinase 65 units/L (55-170) 01/18/17 05:29 CK-MB (CK-2) < 1.0 ng/mL (0.0-4.0) 01/18/17 05:29 CK-MB (CK-2) Rel Index 1.5 (0-4) 01/18/17 05:29 Troponin T < 0.010 ng/mL (0.00-0.029) 01/18/17 05:29 Total Protein 6.8 g/dL (6.3-8.2) 01/18/17 05:29 Albumin 3.3 g/dL (3.9-5) L 01/18/17 05:29 Albumin/Globulin Ratio 0.9 % 01/18/17 05:29 Triglycerides 99 mg/dL (2-149) 01/19/17 06:47 Cholesterol 179 mg/dL (50-199) 01/19/17 06:47 LDL Cholesterol Direct 122 mg/dL (50-130) 01/19/17 06:47 HDL Cholesterol 38 mg/dL (40-59) L 01/19/17 06:47 Cholesterol/HDL Ratio 4.71 % 01/19/17 06:47 Lipase 132 units/L (13-60) H 01/17/17 16:15 Urine Color Yellow (Yellow) 01/17/17 18:50 Urine Turbidity Clear (Clear) 01/17/17 18:50 Urine pH 5.0 (5.0-7.0) 01/17/17 18:50 Ur Specific [place] 1.021 (1.003-1.030) 01/17/17 18:50 Urine Protein 100 mg/dl mg/dL (Negative) 01/17/17 18:50 Urine Glucose (UA) 150 mg/dL (Negative) 01/17/17 18:50 Urine Ketones Neg mg/dL (Negative) 01/17/17 18:50 Urine Blood Neg (Negative) 01/17/17 18:50 Urine Nitrite Neg (Negative) 01/17/17 18:50 Urine Bilirubin Neg (Negative) 01/17/17 18:50 Urine Urobilinogen 2.0 mg/dL (<2.0) 01/17/17 18:50 Ur Leukocyte Esterase Neg (Negative) 01/17/17 18:50 Urine WBC (Auto) 6.0 /HPF (0.0-6.0) 01/17/17 18:50 Urine RBC (Auto) 4.0 /HPF (0.0-6.0) 01/17/17 18:50 U Epithel Cells (Auto) < 1.0 /HPF (0-13.0) 01/17/17 18:50 Urine Mucus 2+ /HPF 01/17/17 18:50
== END 2017-01-20 15:40 | disposition home health service (06) | DRG 305 ==
LOC: ED 15:21 → CC1 20:43 → 4A 01-18 20:14
PROVIDERS: ADMIT Internal Medicine; ATTEND Internal Medicine
PROC: 3E0234Z Introduction of Serum, Toxoid and Vaccine into Muscle, Percutaneous Approach (ICD-10-PCS; principal; 2017-01-18)
DX: I16.0 Hypertensive urgency (principal); G45.9 Transient cerebral ischemic attack, unspecified; I10 Essential (primary) hypertension; I25.10 Atherosclerotic heart disease of native coronary artery without angina pectoris; E11.65 Type 2 diabetes mellitus with hyperglycemia; Z91.19 Patient's noncompliance with other medical treatment and regimen; E66.01 Morbid (severe) obesity due to excess calories; Z68.35 Body mass index [BMI] 35.0-35.9, adult; G47.33 Obstructive sleep apnea (adult) (pediatric); R94.31 Abnormal electrocardiogram [ECG] [EKG]; Z82.49 Family history of ischemic heart disease and other diseases of the circulatory system; Z23 Encounter for immunization
CPT/HCPCS: 36415; 70450; 70496; 70498; 70551; 71010; 78452; 80053; 80061; 81001; 82550; 82553; 82805; 82962; 83036; 83690; 84484; 85014; 85018; 85025; 85049; 85520; 85610; 85730; 90732; 93005; 93010; 93017; 93306; 96365; 96366; 96375; A9270-GY; A9502; G8978-GP; G8979-GP; J1644; J1815; J1818; J2785; J7030; Q9967